=== PATIENT | male | born 1945 | race Caucasian/White ===

== ENCOUNTER 2023-03-06 12:35 | Day surgery (SDC) | payer MEDICARE ==
[2023-03-03 11:20] VITALS: BMI 22.6
[~2023-03-06 12:35] MED LIST: LACTATED RINGERS 1,000 ML IV SCH; LIDOCAINE 1% (10MG/ML) FOR IV START INTRADERMA PRN
[2023-03-06 13:46] VITALS: TEMP 96.8
[2023-03-06 14:02] LABS: Glucose,Whole Blood 104 mg/dL (70-110)
[2023-03-06] MEDS ORDERED: PROPOFOL 10 MG/ML 20 ML VIAL IV ONE (14:22)
--- NOTE | 2023-03-06 14:24 | P.GSHP ---
History of Present Illness H&P Date: 03/06/23 Chief Complaint: dysphagia this a 77-year-old male who has complaints of dysphagia. Patient resents today for EGD. Past Medical History Past Medical History: Cancer, Hypertension Additional Past Medical History / Comment(s): esophagus pain with swallowing, restless leg syndrome,prostate CA approx 5 yrs ago no radiation or chemo, chronic back pain-has had pain procedures in past, skin CA History of Any Multi-Drug Resistant Organisms: None Reported Past Surgical History: Prostate Surgery Additional Past Surgical History / Comment(s): prostatectomy,dental procedures for teeth extraction,moh's procedure Past Anesthesia/Blood Transfusion Reactions: No Reported Reaction Additional Past Anesthesia/Blood Transfusion Reaction / Comment(s): no blood transfusions Smoking Status: Current every day smoker - Past Family History Mother Additional Family Medical History / Comment(s): at age 96 Medications and Allergies Home Medications Medication Instructions Recorded Confirmed Type Megestrol [Megace] 10 ml PO DAILY 03/03/23 03/03/23 History Pantoprazole Sodium [Protonix] 20 mg PO DAILY 03/03/23 03/03/23 History Ropinirole Unk Dose 1 dose PO HS 03/03/23 03/03/23 History Sucralfate [Carafate] 1 gm PO TID 03/03/23 03/03/23 History Welllbutrin Unk Dose 1 dose PO DAILY 03/03/23 03/03/23 History atenoloL 25 mg PO QAM 03/03/23 03/03/23 History Allergies Allergy/AdvReac Type Severity Reaction Status Date / Time No Known Allergies Allergy Verified 03/06/23 13:42 Surgical - Exam Vital Signs Temp Pulse Resp BP Pulse Ox 96.8 F L 73 16 163/70 97 03/06/23 13:42 03/06/23 13:42 03/06/23 13:42 03/06/23 13:42 03/06/23 13:42 - General well developed, well nourished, no distress - Eyes PERRL - ENT normal pinna - Neck no masses - Respiratory normal expansion - Cardiovascular Rhythm: regular - Abdomen Abdomen: soft, non tender Assessment and Plan Assessment: dysphagia. We'll perform EGD.
--- NOTE | 2023-03-06 14:39 | P.OP ---
Date of Procedure: 03/06/23 Preoperative Diagnosis: dysphagia Postoperative Diagnosis: dysphagia Esophagitis Procedure(s) Performed: EGD Anesthesia: MAC Surgeon: Abbe Clemente Pathology: other (antrum, esophagus) Condition: stable Disposition: PACU Description of Procedure: the patient's placed on the endoscopy table in the lateral position. He received IV sedation. The gastro-/oropharynx passed in the esophagus and stomach. Scope then placed through the pylorus. The first and second portion of the duodenum appeared normal. Scope was then brought antrum and this appeared minimally inflamed. A biopsy was performed. The scope was then retroflexed and the remainder the stomach appeared normal. There was no significant hiatal hernia. The GE junction was at 40 cm. The distal esophagus appeared inflamed. A biopsies performed. The proximal esophagus appeared normal. Scope withdrawn for patient. Presumed patient had dysphagia related to esophagitis.
[2023-03-06 15:04] VITALS: BP 106/67; PULSE 67; RESP 18
== END 2023-03-06 15:23 | disposition home or self-care (01) ==
LOC: ORWHC2ENDO 12:35
PROVIDERS: ATTEND Surgery
DX: K20.90 Esophagitis, unspecified without bleeding (principal); K31.9 Disease of stomach and duodenum, unspecified; I10 Essential (primary) hypertension; F17.200 Nicotine dependence, unspecified, uncomplicated; Z85.46 Personal history of malignant neoplasm of prostate; Z90.79 Acquired absence of other genital organ(s); Z79.899 Other long term (current) drug therapy
CPT/HCPCS: 88305; 88312; 88342; 43239; J2704

== ENCOUNTER → 2023-12-19 | Outpatient (CLI) | payer MEDICARE ==
--- NOTE | 2023-12-19 13:29 | FL ---
EXAMINATION TYPE: FL UGI air w esophagus DATE OF EXAM: 12/19/2023 COMPARISON: None HISTORY: Liver disease TECHNIQUE: A double air contrast UGI study is performed. Patient was cooperative with the examinatio n but had some mobility issues causing some limitation. FINDINGS: Contrast passes through the esophagus without hesitancy. No obstruction at the gastroesophageal junct ion is evident. Stomach is incompletely distended. Gastric fold hypertrophy appears to be present. There is prominenc e of the gastric folds. An ulcer may be within the proximal part of the second portion of the duodenu m may have an ulcer. Example image 83. IMPRESSION 1. Proximal duodenal ulcer second portion duodenum. EGD recommended. 2. Gastritis and duodenitis likely present.
== END | disposition home or self-care (01) ==
LOC: RADUSWWP 08:51
PROVIDERS: ATTEND Surgery
DX: K26.9 Duodenal ulcer, unspecified as acute or chronic, without hemorrhage or perforation (principal); K21.9 Gastro-esophageal reflux disease without esophagitis
CPT/HCPCS: 74246

== ENCOUNTER 2023-12-21 08:15 | Day surgery (SDC) | payer MEDICARE ==
[2023-12-21] MEDS: LACTATED RINGERS 1,000 ML IV SCH (08:50)
[2023-12-21] MEDS ORDERED: LIDOCAINE 1% INJ 10MG/ML (20 ML MDV) ONE (09:15)
[2023-12-21] MEDS ORDERED: PROPOFOL 10 MG/ML 20 ML VIAL IV ONE (09:15)
[2023-12-21 09:23] VITALS: RESP 16; TEMP 95.8
--- NOTE | 2023-12-21 09:29 | P.OP ---
Date of Procedure: 12/21/23 Preoperative Diagnosis: GERD Postoperative Diagnosis: antral gastritis Hiatal hernia Esophagitis Procedure(s) Performed: EGD Anesthesia: MAC Surgeon: Abbe Clemente Pathology: other (antrum, esophagus) Condition: stable Disposition: PACU Description of Procedure: the patient's placed on the endoscopy table in the lateral position. He received IV sedation. The gastroscope placed oropharynx passed in the esophagus into the stomach. Scope was placed through the pylorus. The first and second portion of the duodenum appeared normal. The scope was then brought back the antrum was mildly inflamed. A biopsies were. Scope was then retroflexed and the remainder the stomach appeared normal. The patient had a moderate sliding hiatal hernia. The GE junction was at 38 cm the distal esophagus appeared inflamed. A biopsies. Proximal esophagus appeared normal. Scope was withdrawn for patient.
[2023-12-21 10:07] VITALS: BP 149/79; PULSE 61
== END 2023-12-21 09:56 | disposition home or self-care (01) ==
LOC: ORWHC2ENDO 08:15
PROVIDERS: ATTEND Surgery
DX: K29.50 Unspecified chronic gastritis without bleeding (principal); K21.00 Gastro-esophageal reflux disease with esophagitis, without bleeding; K44.9 Diaphragmatic hernia without obstruction or gangrene; K22.10 Ulcer of esophagus without bleeding; I10 Essential (primary) hypertension; F32.A Depression, unspecified; F17.210 Nicotine dependence, cigarettes, uncomplicated; Z79.899 Other long term (current) drug therapy; Z85.46 Personal history of malignant neoplasm of prostate
CPT/HCPCS: 88305; 43239; J2001; J2704